=== PATIENT | female | born 1945 | race Caucasian/White ===

== ENCOUNTER 2017-12-18 16:04 | Emergency (ER) | payer OTHER, SELFPAY ==
[2017-12-18 16:11] VITALS: BP 155/70; PULSE 85; RESP 20; TEMP 37.2; O2SAT 98; BMI 30.7
[2017-12-18 16:17] VITALS: BP 155/70; PULSE 86; RESP 18; TEMP 36.8; O2SAT 100
--- NOTE | 2017-12-18 16:21 | DI.CT.S_ITS ---
PROCEDURE: CT HEAD/BRAIN WO CON INDICATIONS: glf TECHNIQUE: Noncontrast 4.5 mm thick angled axial sections acquired from the foramen magnum to the vertex, with coronal and sagittal reformats. For radiation dose reduction, the following was used: automated exposure control, adjustment of mA and/or kV according to patient size. COMPARISON: None. FINDINGS: Image quality: Excellent. CSF spaces: Basal cisterns are patent. No extra-axial fluid collections. The ventricles are symmetric in size and shape. Brain: Small acute parenchymal bleed measuring 9 mm in maximum diameter noted in the anterior right frontal lobe (series 2, image 18). No intracranial masses. There is moderate cerebral volume loss for age, with resultant ventricular and sulcal prominence. There are moderate periventricular and deep white matter chronic small vessel ischemic changes. There is intracranial internal carotid artery and vertebral artery atherosclerosis. Skull and face: Calvarium and visualized facial bones appear intact, without suspicious lesions. Large right frontal/right periorbital facial hematoma. Sinuses: Visualized sinuses and mastoids are clear. IMPRESSION: 1. Small, 9 mm in maximum diameter right frontal parenchymal hematoma. 2. No fracture. 3. Findings discussed with CHARISSA Aguirre on 12/18/2017 at 1705 hrs PST. Dictated by: Gladys Vargas MD, PhD on 12/18/2017 at 15:59 Approved by: Gladys Vargas MD, PhD on 12/18/2017 at 16:06
--- NOTE | 2017-12-18 16:21 | DI.CT.S_ITS ---
PROCEDURE: CT FACIAL BONES WO CON INDICATIONS: glf TECHNIQUE: Noncontrast 2.5 mm thick axial images acquired from the mandible through the frontal sinuses, with coronal and sagittal reformatting. For radiation dose reduction, the following was used: automated exposure control, adjustment of mA and/or kV according to patient size. COMPARISON: None. FINDINGS: Image quality: Excellent. Bones and teeth: Orbital wood are intact. Sinus wood show no fracture or deformity. Nasal bones and septum are intact. Visualized portions of the mandible demonstrate no fractures or subluxation. Zygomatic arches are intact. Pterygoid plates are intact. Visualized portions of the skull base and auditory canals are intact. Sinuses: Paranasal sinuses are aerated, without fluid levels, mucosal thickening, or mucoceles. Mastoid air cells are aerated. Soft tissues: Large right perirenal/right frontal facial hematoma is noted. No enlarged lymph nodes. No soft tissue lacerations or debris. Vascular: Atherosclerotic calcifications noted in the carotid arteries and vertebral arteries. Bony vascular foramina and canals are intact. IMPRESSION: No fracture. Dictated by: Gladys Vargas MD, PhD on 12/18/2017 at 16:06 Approved by: Gladys Vargas MD, PhD on 12/18/2017 at 16:09
--- NOTE | 2017-12-18 16:23 | DI.RAD.S_ITS ---
PROCEDURE: XR WRIST RT 2V INDICATIONS: right wrist pain after ground level fall TECHNIQUE: 2 views of the wrist were acquired. COMPARISON: None. FINDINGS: Bones: No fractures or dislocations. No suspicious bony lesions. Scaphoid view: Not requested Soft tissues: No suspicious soft tissue calcifications. IMPRESSION: No fracture. No acute osseous lesion. If symptoms and/or clinical suspicion for pathology persists, further assessment with repeat radiographs (7-10 days) or advanced imaging (e.g. CT, MRI or bone scan) may be helpful. Dictated by: Gladys Vargas MD, PhD on 12/18/2017 at 16:21 Approved by: Gladys Vargas MD, PhD on 12/18/2017 at 16:22
--- NOTE | 2017-12-18 16:23 | DI.RAD.S_ITS ---
PROCEDURE: XR KNEE RT 3V INDICATIONS: right knee pain after ground level fall TECHNIQUE: 3 views of the knee were acquired. COMPARISON: [facility], , KNEE 3V RIGHT, 04/11/2015, 14:31. FINDINGS: Bones: No fractures or dislocations. No suspicious bony lesions. Mild tricompartmental osteoarthritis. Soft tissues: No joint effusion. Small calcification noted in the prepatellar bursa. No IMPRESSION: No fracture. No acute osseous lesion. If symptoms and/or clinical suspicion for pathology persists, further assessment with repeat radiographs (7-10 days) or advanced imaging (e.g. CT, MRI or bone scan) may be helpful. Dictated by: Gladys Vargas MD, PhD on 12/18/2017 at 16:11 Approved by: Gladys Vargas MD, PhD on 12/18/2017 at 16:13
--- NOTE | 2017-12-18 16:23 | DI.RAD.S_ITS ---
PROCEDURE: XR KNEE LT 3V INDICATIONS: left knee pain after ground level fall TECHNIQUE: 3 views of the knee were acquired. COMPARISON: None. FINDINGS: Bones: No fractures or dislocations. No suspicious bony lesions. Mild tricompartmental osteoarthritis. Soft tissues: No joint effusion. No suspicious soft tissue calcifications. IMPRESSION: No fracture. No osseous lesion. If symptoms and/or clinical suspicion for pathology persists, further assessment with repeat radiographs (7-10 days) or advanced imaging (e.g. CT, MRI or bone scan) may be helpful. Dictated by: Gladys Vargas MD, PhD on 12/18/2017 at 16:13 Approved by: Gladys Vargas MD, PhD on 12/18/2017 at 16:21
[2017-12-18] MEDS: TET,DIPH,PERTUSS(ACELL),VAC/PF 0.5 ML SYRINGE IM (17:16)
--- NOTE | 2017-12-18 17:16 | ED.FALL ---
HPI - Fall <Mckenzie Torres RN CLINICAL QUALITY-BC - Last Filed: 12/18/17 18:34> General Chief Complaint: Fall Stated Complaint: GLF Time Seen by Provider: 12/18/17 16:14 Source: patient and family Mode of arrival: EMS History of Present Illness HPI Narrative: Patient is a 72-year-old female with history of diabetes In cardiac stents who presents after ground level fall. She states she tripped and fell over her son's dog. She presents complaining of a laceration and bruise above her right eye as well as bilateral knee pain and right wrist pain. She states she tripped forward and landed on her right outstretched hand. Then she hit her face. She denies any numbness, tingling, incontinence, dizziness lightheadedness nausea vomiting or diarrhea. She states she did not have any chest pain or shortness of breath. She does not know when her last tetanus vaccination was. She denies any pelvic pain. She states she was ambulating after the accident. Patient states she does not take any blood thinners and does not take Plavix. She came to us by EMS. She comes complaining of multiple abrasions on her face, hands and forearms. Related Data Home Medications Medication Instructions Recorded Confirmed aspirin 81 mg PO QDAY #0 01/20/12 12/18/17 furosemide [Lasix] 20 mg PO DAILY PRN #0 01/20/12 12/18/17 gabapentin [Neurontin] 300 mg PO BIDCC #0 01/20/12 12/18/17 nitroglycerin [Nitrolingual] 1 spray SUBLINGUAL PRN #0 01/20/12 12/18/17 cholestyramine-aspartame 1 packet PO BID PRN #0 04/27/17 12/18/17 [Prevalite] insulin aspart U-100 [Novolog 20 u SQ TIDAC #0 04/27/17 12/18/17 Flexpen U-100 Insulin] High Absorption Magnesium 2 tab PO BID 12/18/17 12/18/17 ascorbic acid-vitamin E-biotin 2 cap PO DAILY 12/18/17 12/18/17 [Hair, Skin, Nails with Biotin] atorvastatin 1 tab PO DAILY 12/18/17 12/18/17 cholecalciferol (vitamin D3) 5,000 unit PO DAILY 12/18/17 12/18/17 [Vitamin D3] citalopram 1 tab PO DAILY 12/18/17 12/18/17 esomeprazole magnesium 1 cap PO DAILY 12/18/17 12/18/17 fluticasone 2 spray INTRANASAL BID 12/18/17 12/18/17 hydrocodone-acetaminophen 1 tab PO 3-4XD PRN 12/18/17 12/18/17 insulin detemir U-100 [Levemir 70 units SUBCUT BEDTIME 12/18/17 12/18/17 FlexTouch U-100 Insuln] ipratropium bromide [Atrovent HFA] 2 puff INHALATION QID PRN 12/18/17 12/18/17 metformin 1 tab PO TID 12/18/17 12/18/17 metoprolol succinate 1 tab PO BID 12/18/17 12/18/17 nortriptyline 1 cap PO BID 12/18/17 12/18/17 vitamin B comp with C no.4 [Super 1 tab PO DAILY 12/18/17 12/18/17 B Complex + C] Allergies Allergy/AdvReac Type Severity Reaction Status Date / Time codeine [CODEINE] Allergy Mild SICK TO Unverified 05/29/17 12:23 STOMACH oxycodone [OXYCODONE] Allergy Mild INTRACTABLE Unverified 05/29/17 12:23 VOMITING phenobarbital [PHENOBARBITAL] Allergy Mild RASH Unverified 05/29/17 12:23 albuterol [ALBUTEROL] Allergy Unknown Unverified 05/29/17 12:23 IBUPROFEN Allergy Mild PT REPORTS Uncoded 05/29/17 12:23 SHE JUST DOESN'T TAKE. Review of Systems <CHARISSA Aguirre-BC - Last Filed: 12/18/17 18:34> Review of Systems GENERAL: Denies chills, fatigue, malaise, fever, sweats. HEENT: Denies sinus pain, ear pain, sore throat, difficulty swallowing, dizziness. RESPIRATORY: Denies dyspnea, cough, wheezing, hemoptysis, sputum. CARDIOVASCULAR: Denies chest pain, palpitations, orthopnea, edema, GASTROINTESTINAL: Denies nausea, vomiting, abdominal pain, diarrhea, constipation, melena. : Denies dysuria, frequency, incontinence, hematuria, urinary retention. MUSCULOSKELETAL: see HPI SKIN: See HPI NEUROLOGIC: see HPI PSYCHIATRIC: No concerning psychosocial issues. 12 point review of systems is negative except for those stated above Exam <CHARISSA Aguirre-BC - Last Filed: 12/18/17 18:34> Narrative Exam Narrative: GENERAL: This is a well-nourished, well-developed patient, with obvious facial trauma HEAD: laceration superior to right eye. Extensive periorbital ecchymosis noted right eye. Hematoma above the right eye EYES: periorbital ecchymosis extensive on right eye. Left pupil is round and reactive. No nystagmus noted left eye. ENT: Nose without bleeding, purulent drainage or septal hematoma. Throat without erythema, tonsillar hypertrophy or exudate. Uvula midline. Airway patent. NECK: Trachea midline. No JVD or lymphadenopathy. Supple, nontender, no meningeal signs. CARDIOVASCULAR: Regular rate and rhythm without murmurs, gallops, or rubs. RESPIRATORY: Clear to auscultation. Breath sounds equal bilaterally. No wheezes, rales, or rhonchi. GASTROINTESTINAL: Abdomen soft, Obese,non-tender, nondistended. No hepato-splenomegaly, or palpable masses. No guarding. EXTREMITIES: Patient complains of right wrist pain and decreased range of motion as far as flexion and extension. She complains of bilateral pain to palpation both patellas. She is moving all extremities. Pelvis is stable to rock. BACK: Nontender without deformity or crepitance. No flank tenderness. No pain to C-spine or spinal palpation. NEURO: AOx3. GCS 15. clear speech. SKIN: Multiple abrasions noted right hand left hand right wrist. 3-4 mm laceration superior to right eye. Initial Vital Signs Initial Vital Signs: Vital Signs Temperature 98.9 F 12/18/17 16:11 Pulse Rate 85 12/18/17 16:11 Respiratory Rate 20 12/18/17 16:11 Blood Pressure 155/70 H 12/18/17 16:11 Pulse Oximetry 98 12/18/17 16:11 <Raúl Bright MD - Last Filed: 12/18/17 19:17> Initial Vital Signs Initial Vital Signs: Vital Signs Temperature 98.9 F 12/18/17 16:11 Pulse Rate 85 12/18/17 16:11 Respiratory Rate 20 12/18/17 16:11 Blood Pressure 155/70 H 12/18/17 16:11 Pulse Oximetry 98 12/18/17 16:11 Course <Mckenzie Torres, RN CLINICAL QUALITY-BC - Last Filed: 12/18/17 18:34> Course Narrative: I met with the patient and her son and [id number] several times throughout her stay in the emergency department. I kept them updated on [facility] schedule. Patient remained hemodynamically stable throughout her emergency department stay. She remained alert and oriented using all extremities equally. Family remained at her bedside. Orders Ordered: ED Orders 12/18/17 16:21 CT facial bones wo con Stat CT head/brain wo con Stat 12/18/17 16:23 XR knee LT 3V Stat XR knee RT 3V Stat XR wrist RT 2V Stat 12/18/17 17:20 CT cervical spine wo con Stat Complete Blood Count AUTO DIFF Stat Comprehensive Metabolic Panel Stat Partial Thromboplastin Time Stat Prothrombin Time INR Stat Type and Screen Stat 12/18/17 17:22 EKG-12 Lead Stat Discontinued Medications Diphtheria/Tetanus/Acell Pertussis (Adacel) 0.5 ml IM .ONCE ONE Stop: 12/18/17 17:16 Last Admin: 12/18/17 17:16 Dose: 0.5 ml Morphine Sulfate (Morphine) 4 mg IV NOW ONE Stop: 12/18/17 18:17 Last Admin: 12/18/17 18:29 Dose: 4 mg Ondansetron HCl (Zofran) 4 mg IV NOW ONE Stop: 12/18/17 18:17 Last Admin: 12/18/17 18:29 Dose: 4 mg Reevaluation(s) Reevaluation #1: spoke with Radiology regarding frontal parenchymal hematoma. Time: 17:05 Reevaluation #2: Spoke with [facility]. Patient was accepted by Dr Briones at [facility]. Air lift transfer initiated. Time: 17:20 Reevaluation #3: Care transferred to [facility]. Patient was given morphine and Zofran prior to departure. She was also given a Watters catheter prior to departure. Upon transfer, patient complained of hip pain. However her blood pressures remained in the 150s, heart rate stable. Discussed that patient has been using legs without issue in the emergency department. Offered to the x-rays prior to air lift departure, but [facility] stated they would prefer to evaluated at [place] Given that she is hemodynamically stable. Time: 18:15 Vital Signs - 8 hr 12/18/17 16:11 12/18/17 16:17 12/18/17 17:30 Temperature 98.9 F 98.3 F Pulse Rate 85 86 93 H Respiratory Rate 20 18 22 Blood Pressure 155/70 H Blood Pressure [Left Arm] 155/70 H 162/71 H Pulse Oximetry 98 100 96 12/18/17 17:45 Temperature Pulse Rate 95 H Respiratory Rate 27 H Blood Pressure Blood Pressure [Left Arm] 155/65 H Pulse Oximetry 94 <Raúl Bright MD - Last Filed: 12/18/17 19:17> Orders Ordered: ED Orders 12/18/17 16:21 CT facial bones wo con Stat CT head/brain wo con Stat 12/18/17 16:23 XR knee LT 3V Stat XR knee RT 3V Stat XR wrist RT 2V Stat 12/18/17 17:20 CT cervical spine wo con Stat Complete Blood Count AUTO DIFF Stat Comprehensive Metabolic Panel Stat Partial Thromboplastin Time Stat Prothrombin Time INR Stat Type and Screen Stat 12/18/17 17:22 EKG-12 Lead Stat Discontinued Medications Diphtheria/Tetanus/Acell Pertussis (Adacel) 0.5 ml IM .ONCE ONE Stop: 12/18/17 17:16 Last Admin: 12/18/17 17:16 Dose: 0.5 ml Morphine Sulfate (Morphine) 4 mg IV NOW ONE Stop: 12/18/17 18:17 Last Admin: 12/18/17 18:29 Dose: 4 mg Ondansetron HCl (Zofran) 4 mg IV NOW ONE Stop: 12/18/17 18:17 Last Admin: 12/18/17 18:29 Dose: 4 mg Vital Signs - 8 hr 12/18/17 16:11 12/18/17 16:17 12/18/17 17:30 Temperature 98.9 F 98.3 F Pulse Rate 85 86 93 H Respiratory Rate 20 18 22 Blood Pressure 155/70 H Blood Pressure [Left Arm] 155/70 H 162/71 H Pulse Oximetry 98 100 96 12/18/17 17:45 Temperature Pulse Rate 95 H Respiratory Rate 27 H Blood Pressure Blood Pressure [Left Arm] 155/65 H Pulse Oximetry 94 MDM - Fall <KYRA Aguirre - Last Filed: 10/31/18 18:34> Lab Data Result diagrams: 12/18/17 17:20 12/18/17 17:20 Lab Results 12/18/17 12/18/17 12/18/17 Range/Units 17:20 17:20 17:20 WBC 12.8 H (4.5-11.0) X10^3/uL RBC 4.57 (4.0-5.2) X10^6/uL Hgb 12.3 (12.0-16.0) g/dL Hct 38.6 (36-46) % MCV 84.4 (80-100) fL MCH 26.9 (26-34) PG MCHC 31.9 (30-36) % RDW 15.3 H (11.6-14.8) % Plt Count 278 (150-400) X10^3/uL Neut % (Auto) 71.8 (50-75) % Lymph % (Auto) 19.5 L (25-40) % [place] % (Auto) 7.2 (3-14) % Eos % (Auto) 1.2 L (2-4) % Baso % (Auto) 0.3 (0-2) % Neut # (Auto) 9200 H (5307-8237) /uL PT 11.9 (10.1-12.7) SECONDS INR 1.1 (0.9-1.3) APTT 34 (26.4-36.2) SECONDS Sodium 142 (137-145) mmol/L Potassium 4.4 (3.4-5.1) mmol/L Chloride 101 (98-107) mmol/L Carbon Dioxide 26 (22-32) mmol/L BUN 15 (7-17) mg/dL Creatinine 0.80 (0.52-1.04) mg/dL Estimated GFR > 60.0 (>60) mL/min BUN/Creatinine Ratio 18.8 (6-22) Glucose 202 H (80-110) mg/dL Calcium 8.9 (8.4-10.2) mg/dL Total Bilirubin 0.3 (0.2-1.3) mg/dL AST 22 (14-36) IU/L ALT 24 (9-52) IU/L Alkaline Phosphatase 66 (38-126) U/L Total Protein 7.3 (6.3-8.2) g/dL Albumin 4.4 (3.5-5.0) g/dL Globulin 2.9 (1.7-4.1) g/dL Albumin/Globulin Ratio 1.5 (1.0-2.8) Blood Type Antibody Screen 12/18/17 Range/Units 17:20 WBC (4.5-11.0) X10^3/uL RBC (4.0-5.2) X10^6/uL Hgb (12.0-16.0) g/dL Hct (36-46) % MCV (80-100) fL MCH (26-34) PG MCHC (30-36) % RDW (11.6-14.8) % Plt Count (150-400) X10^3/uL Neut % (Auto) (50-75) % Lymph % (Auto) (25-40) % [place] % (Auto) (3-14) % Eos % (Auto) (2-4) % Baso % (Auto) (0-2) % Neut # (Auto) (4586-3207) /uL PT (10.1-12.7) SECONDS INR (0.9-1.3) APTT (26.4-36.2) SECONDS Sodium (137-145) mmol/L Potassium (3.4-5.1) mmol/L Chloride (98-107) mmol/L Carbon Dioxide (22-32) mmol/L BUN (7-17) mg/dL Creatinine (0.52-1.04) mg/dL Estimated GFR (>60) mL/min BUN/Creatinine Ratio (6-22) Glucose (80-110) mg/dL Calcium (8.4-10.2) mg/dL Total Bilirubin (0.2-1.3) mg/dL AST (14-36) IU/L ALT (9-52) IU/L Alkaline Phosphatase (38-126) U/L Total Protein (6.3-8.2) g/dL Albumin (3.5-5.0) g/dL Globulin (1.7-4.1) g/dL Albumin/Globulin Ratio (1.0-2.8) Blood Type A Positive Antibody Screen Negative Imaging Data right wrist farcture : Radiologist's impression: [address] [address] XRay Report Signed Patient: Twila Angel MMR#: [id number] : 5Acct:[id number] Age/Sex: 72 / FDate of Service: 12/18/17 Loc: ED Accession Number: [id number] Procedure: XR wrist RT 2V Ordering Provider: Mckenzie Torres PROCEDURE: XR WRIST RT 2V INDICATIONS: right wrist pain after ground level fall TECHNIQUE: 2 views of the wrist were acquired. COMPARISON: None. FINDINGS: Bones: No fractures or dislocations. No suspicious bony lesions. Scaphoid view: Not requested Soft tissues: No suspicious soft tissue calcifications. IMPRESSION: No fracture. No acute osseous lesion. If symptoms and/or clinical suspicion for pathology persists, further assessment with repeat radiographs (7-10 days) or advanced imaging (e.g. CT, MRI or bone scan) may be helpful. Dictated by: Gladys Vargas MD, PhD on 12/18/2017 at 16:21 Approved by: Gladys Vargas MD, PhD on 12/18/2017 at 16:22 left knee xray : Radiologist's impression: [place] [address] XRay Report Signed Patient: Twila Angel MMR#: [id number] : 5Acct:[id number] Age/Sex: 72 / FDate of Service: 12/18/17 Loc: ED Accession Number: [id number] Procedure: XR knee LT 3V Ordering Provider: Mckenzie Torres PROCEDURE: XR KNEE LT 3V INDICATIONS: left knee pain after ground level fall TECHNIQUE: 3 views of the knee were acquired. COMPARISON: None. FINDINGS: Bones: No fractures or dislocations. No suspicious bony lesions. Mild tricompartmental osteoarthritis. Soft tissues: No joint effusion. No suspicious soft tissue calcifications. IMPRESSION: No fracture. No osseous lesion. If symptoms and/or clinical suspicion for pathology persists, further assessment with repeat radiographs (7-10 days) or advanced imaging (e.g. CT, MRI or bone scan) may be helpful. Dictated by: Gladys Vargas MD, PhD on 12/18/2017 at 16:13 Approved by: Gladys Vargas MD, PhD on 12/18/2017 at 16:21 right knee xray: Radiologist's impression: [address] [address] XRay Report Signed Patient: Twila Angel [facility]#: [id number] : 5Acct:[id number] Age/Sex: 72 / FDate of Service: 12/18/17 Loc: ED Accession Number: [id number] Procedure: XR knee RT 3V Ordering Provider: Mckenzie Torres-SHERRY PROCEDURE: XR KNEE RT 3V INDICATIONS: right knee pain after ground level fall TECHNIQUE: 3 views of the knee were acquired. COMPARISON: [facility], KNEE 3V RIGHT, 04/11/2015, 14:31. FINDINGS: Bones: No fractures or dislocations. No suspicious bony lesions. Mild tricompartmental osteoarthritis. Soft tissues: No joint effusion. Small calcification noted in the prepatellar bursa. No IMPRESSION: No fracture. No acute osseous lesion. If symptoms and/or clinical suspicion for pathology persists, further assessment with repeat radiographs (7-10 days) or advanced imaging (e.g. CT, MRI or bone scan) may be helpful. Dictated by: Gladys Vargas MD, PhD on 12/18/2017 at 16:11 Approved by: Gladys Vargas MD, PhD on 12/18/2017 at 16:[address] : Radiologist's impression: [address] [address] XRay Report Signed Patient: Twila Angel [facility]#: [id number] : 5Acct:[id number] Age/Sex: 72 / FDate of Service: 12/18/17 Loc: ED Accession Number: [id number] Procedure: XR knee RT 3V Ordering Provider: Mckenzie Torres-SHERRY PROCEDURE: XR KNEE RT 3V INDICATIONS: right knee pain after ground level fall TECHNIQUE: 3 views of the knee were acquired. COMPARISON: [facility], KNEE 3V RIGHT, 04/11/2015, 14:31. FINDINGS: Bones: No fractures or dislocations. No suspicious bony lesions. Mild tricompartmental osteoarthritis. Soft tissues: No joint effusion. Small calcification noted in the prepatellar bursa. No IMPRESSION: No fracture. No acute osseous lesion. If symptoms and/or clinical suspicion for pathology persists, further assessment with repeat radiographs (7-10 days) or advanced imaging (e.g. CT, MRI or bone scan) may be helpful. Dictated by: Gladys Vargas MD, PhD on 12/18/2017 at 16:11 Approved by: Gladys Vargas MD, PhD on 12/18/2017 at 16:[address]: Radiologist's impression: [address] [address] [address] Scan Report Signed Patient: Twila Angel [facility]#: [id number] : 5Acct:[id number] Age/Sex: 72 / FDate of Service: 12/18/17 Loc: ED Accession Number: [id number] Procedure: CT facial bones wo con Ordering Provider: Mckenzie Torres PROCEDURE: CT FACIAL BONES WO CON INDICATIONS: glf TECHNIQUE: Noncontrast 2.5 mm thick axial images acquired from the mandible through the frontal sinuses, with coronal and sagittal reformatting. For radiation dose reduction, the following was used: automated exposure control, adjustment of mA and/or kV according to patient size. COMPARISON: None. FINDINGS: Image quality: Excellent. Bones and teeth: Orbital wood are intact. Sinus wood show no fracture or deformity. Nasal bones and septum are intact. Visualized portions of the mandible demonstrate no fractures or subluxation. Zygomatic arches are intact. Pterygoid plates are intact. Visualized portions of the skull base and auditory canals are intact. Sinuses: Paranasal sinuses are aerated, without fluid levels, mucosal thickening, or mucoceles. Mastoid air cells are aerated. Soft tissues: Large right perirenal/right frontal facial hematoma is noted. No enlarged lymph nodes. No soft tissue lacerations or debris. Vascular: Atherosclerotic calcifications noted in the carotid arteries and vertebral arteries. Bony vascular foramina and canals are intact. IMPRESSION: No fracture. Dictated by: Gladys Vargas MD, PhD on 12/18/2017 at 16:06 Approved by: Gladys Vargas MD, PhD on 12/18/2017 at 16:09 ECG Data Attestation: I personally reviewed and interpreted this ECG as follows: Interpretation: [address] [address] XRay Report Signed Sinus rhythm. Ventricular rate 91. No ST elevation or depression. No ectopy noted. MDM Narrative Medical decision making narrative: Patient is a 72-year-old female who presents after ground level fall. She was found to have a right frontal parenchymal hematoma. She also had various musculoskeletal complaints including knee pain and wrist pain which came back all negative. She does have a large hematoma and periorbital ecchymosis noted on her right side. Her tetanus was updated. Trauma labs were drawn and pending. Her C-spine CT is pending. All images have been pushed to [facility]. Dr Briones Was kind enough to accept the patient for transfer. [facility] picked up the patient at 4:00 p.m.. Patient remained hemodynamically stable and alert and oriented throughout her stay in the emergency department. <Raúl Bright MD - Last Filed: 12/18/17 19:17> Lab Data Lab Results 12/18/17 12/18/17 12/18/17 Range/Units 17:20 17:20 17:20 WBC 12.8 H (4.5-11.0) X10^3/uL RBC 4.57 (4.0-5.2) X10^6/uL Hgb 12.3 (12.0-16.0) g/dL Hct 38.6 (36-46) % MCV 84.4 (80-100) fL MCH 26.9 (26-34) PG MCHC 31.9 (30-36) % RDW 15.3 H (11.6-14.8) % Plt Count 278 (150-400) X10^3/uL Neut % (Auto) 71.8 (50-75) % Lymph % (Auto) 19.5 L (25-40) % [place] % (Auto) 7.2 (3-14) % Eos % (Auto) 1.2 L (2-4) % Baso % (Auto) 0.3 (0-2) % Neut # (Auto) 9200 H (9143-1943) /uL PT 11.9 (10.1-12.7) SECONDS INR 1.1 (0.9-1.3) APTT 34 (26.4-36.2) SECONDS Sodium 142 (137-145) mmol/L Potassium 4.4 (3.4-5.1) mmol/L Chloride 101 (98-107) mmol/L Carbon Dioxide 26 (22-32) mmol/L BUN 15 (7-17) mg/dL Creatinine 0.80 (0.52-1.04) mg/dL Estimated GFR > 60.0 (>60) mL/min BUN/Creatinine Ratio 18.8 (6-22) Glucose 202 H (80-110) mg/dL Calcium 8.9 (8.4-10.2) mg/dL Total Bilirubin 0.3 (0.2-1.3) mg/dL AST 22 (14-36) IU/L ALT 24 (9-52) IU/L Alkaline Phosphatase 66 (38-126) U/L Total Protein 7.3 (6.3-8.2) g/dL Albumin 4.4 (3.5-5.0) g/dL Globulin 2.9 (1.7-4.1) g/dL Albumin/Globulin Ratio 1.5 (1.0-2.8) Blood Type Antibody Screen 12/18/17 Range/Units 17:20 WBC (4.5-11.0) X10^3/uL RBC (4.0-5.2) X10^6/uL Hgb (12.0-16.0) g/dL Hct (36-46) % MCV (80-100) fL MCH (26-34) PG MCHC (30-36) % RDW (11.6-14.8) % Plt Count (150-400) X10^3/uL Neut % (Auto) (50-75) % Lymph % (Auto) (25-40) % [place] % (Auto) (3-14) % Eos % (Auto) (2-4) % Baso % (Auto) (0-2) % Neut # (Auto) (8712-5697) /uL PT (10.1-12.7) SECONDS INR (0.9-1.3) APTT (26.4-36.2) SECONDS Sodium (137-145) mmol/L Potassium (3.4-5.1) mmol/L Chloride (98-107) mmol/L Carbon Dioxide (22-32) mmol/L BUN (7-17) mg/dL Creatinine (0.52-1.04) mg/dL Estimated GFR (>60) mL/min BUN/Creatinine Ratio (6-22) Glucose (80-110) mg/dL Calcium (8.4-10.2) mg/dL Total Bilirubin (0.2-1.3) mg/dL AST (14-36) IU/L ALT (9-52) IU/L Alkaline Phosphatase (38-126) U/L Total Protein (6.3-8.2) g/dL Albumin (3.5-5.0) g/dL Globulin (1.7-4.1) g/dL Albumin/Globulin Ratio (1.0-2.8) Blood Type A Positive Antibody Screen Negative Discharge Plan Departure Patient Disposition: [facility] Clinical Impression: Parenchymal hemorrhage, Fall from ground level, Hematoma, Laceration Discharge Date/Time: 12/18/17 18:35 Interventions: ED Discharge Assessment Last Done: 12/18/17 18:58 Prescriptions: No Action aspirin 81 MG tablet,delayed release (DR/EC) 81 mg PO QDAY Qty: 0 RF: 0 nitroglycerin [Nitrolingual] 0.4 MG/SPRAY spray,non-aerosol 1 spray Sublingual PRN Qty: 0 RF: 0 furosemide [Lasix] 20 MG tablet 20 mg PO DAILY PRN (Reason: Edema) Qty: 0 RF: 0 gabapentin [Neurontin] 300 MG capsule 300 mg PO BIDCC Qty: 0 RF: 0 insulin aspart U-100 [Novolog Flexpen U-100 Insulin] 100 UNIT/1 ML insulin pen 20 u SQ TIDAC Qty: 0 RF: 0 cholestyramine-aspartame [Prevalite] 4 GM powder in packet 1 packet PO BID PRN (Reason: as directed) Qty: 0 RF: 0 metformin 500 mg tablet 1 tab PO TID RF: 0 atorvastatin 20 mg tablet 1 tab PO DAILY RF: 0 metoprolol succinate 50 mg tablet extended release 24 hr 1 tab PO BID RF: 0 hydrocodone-acetaminophen 10-325 mg tablet 1 tab PO 3-4XD PRN (Reason: pain) RF: 0 nortriptyline 25 mg capsule 1 cap PO BID RF: 0 citalopram 20 mg tablet 1 tab PO DAILY RF: 0 esomeprazole magnesium 40 mg capsule,delayed release(DR/EC) 1 cap PO DAILY RF: 0 fluticasone 50 mcg/actuation spray,suspension 2 spray Intranasal BID RF: 0 ipratropium bromide [Atrovent HFA] 17 mcg/actuation HFA aerosol inhaler 2 puff Inhalation QID PRN (Reason: Wheezing) RF: 0 insulin detemir U-100 [Levemir FlexTouch U-100 Insuln] 100 unit/mL (3 mL) insulin pen 70 units subcut BEDTIME RF: 0 vitamin B comp with C no.4 [Super B Complex + C] 150 mg Tablet 1 tab PO DAILY RF: 0 cholecalciferol (vitamin D3) [Vitamin D3] 5,000 unit Tablet 5,000 unit PO DAILY RF: 0 ascorbic acid-vitamin E-biotin [Hair, Skin, Nails with Biotin] 7.5-7.5-1,250 mg-unit-mcg Tablet,Chewable 2 cap PO DAILY RF: 0 High Absorption Magnesium 2 tab PO BID RF: 0 <Raúl Bright MD - Last Filed: 12/18/17 19:17> Cosign ED Attending Cosignature Attestation: Exam Narrative: GENERAL APPEARANCE: Patient sitting comfortably, in no distress. HEENT: PERRL, EOMI, conjunctiva pink NECK: Supple I was present in the ER at the time this patient's care. I was available for verbal consultation or to see the patient directly if requested. I agree with the assessment and treatment plan.
--- NOTE | 2017-12-18 17:19 | ED_ITS ---
HPI - Fall <Mckenzie Torres ENGINE MANAGER-BC - Last Filed: 12/18/17 18:34> General Chief Complaint: Fall Stated Complaint: GLF Time Seen by Provider: 12/18/17 16:14 Source: patient and family Mode of arrival: EMS History of Present Illness HPI Narrative: Patient is a 72-year-old female with history of diabetes In cardiac stents who presents after ground level fall. She states she tripped and fell over her son's dog. She presents complaining of a laceration and bruise above her right eye as well as bilateral knee pain and right wrist pain. She states she tripped forward and landed on her right outstretched hand. Then she hit her face. She denies any numbness, tingling, incontinence, dizziness lightheadedness nausea vomiting or diarrhea. She states she did not have any chest pain or shortness of breath. She does not know when her last tetanus vaccination was. She denies any pelvic pain. She states she was ambulating after the accident. Patient states she does not take any blood thinners and does not take Plavix. She came to us by EMS. She comes complaining of multiple abrasions on her face, hands and forearms. Related Data Home Medications Medication Instructions Recorded Confirmed aspirin 81 mg PO QDAY #0 01/20/12 12/18/17 furosemide [Lasix] 20 mg PO DAILY PRN #0 01/20/12 12/18/17 gabapentin [Neurontin] 300 mg PO BIDCC #0 01/20/12 12/18/17 nitroglycerin [Nitrolingual] 1 spray SUBLINGUAL PRN #0 01/20/12 12/18/17 cholestyramine-aspartame 1 packet PO BID PRN #0 04/27/17 12/18/17 [Prevalite] insulin aspart U-100 [Novolog 20 u SQ TIDAC #0 04/27/17 12/18/17 Flexpen U-100 Insulin] High Absorption Magnesium 2 tab PO BID 12/18/17 12/18/17 ascorbic acid-vitamin E-biotin 2 cap PO DAILY 12/18/17 12/18/17 [Hair, Skin, Nails with Biotin] atorvastatin 1 tab PO DAILY 12/18/17 12/18/17 cholecalciferol (vitamin D3) 5,000 unit PO DAILY 12/18/17 12/18/17 [Vitamin D3] citalopram 1 tab PO DAILY 12/18/17 12/18/17 esomeprazole magnesium 1 cap PO DAILY 12/18/17 12/18/17 fluticasone 2 spray INTRANASAL BID 12/18/17 12/18/17 hydrocodone-acetaminophen 1 tab PO 3-4XD PRN 12/18/17 12/18/17 insulin detemir U-100 [Levemir 70 units SUBCUT BEDTIME 12/18/17 12/18/17 FlexTouch U-100 Insuln] ipratropium bromide [Atrovent HFA] 2 puff INHALATION QID PRN 12/18/17 12/18/17 metformin 1 tab PO TID 12/18/17 12/18/17 metoprolol succinate 1 tab PO BID 12/18/17 12/18/17 nortriptyline 1 cap PO BID 12/18/17 12/18/17 vitamin B comp with C no.4 [Super 1 tab PO DAILY 12/18/17 12/18/17 B Complex + C] Allergies Allergy/AdvReac Type Severity Reaction Status Date / Time codeine [CODEINE] Allergy Mild SICK TO Unverified 05/29/17 12:23 STOMACH oxycodone [OXYCODONE] Allergy Mild INTRACTABLE Unverified 05/29/17 12:23 VOMITING phenobarbital [PHENOBARBITAL] Allergy Mild RASH Unverified 05/29/17 12:23 albuterol [ALBUTEROL] Allergy Unknown Unverified 05/29/17 12:23 IBUPROFEN Allergy Mild PT REPORTS Uncoded 05/29/17 12:23 SHE JUST DOESN'T TAKE. Review of Systems <CHARISSA Aguirre-BC - Last Filed: 12/18/17 18:34> Review of Systems GENERAL: Denies chills, fatigue, malaise, fever, sweats. HEENT: Denies sinus pain, ear pain, sore throat, difficulty swallowing, dizziness. RESPIRATORY: Denies dyspnea, cough, wheezing, hemoptysis, sputum. CARDIOVASCULAR: Denies chest pain, palpitations, orthopnea, edema, GASTROINTESTINAL: Denies nausea, vomiting, abdominal pain, diarrhea, constipation, melena. : Denies dysuria, frequency, incontinence, hematuria, urinary retention. MUSCULOSKELETAL: see HPI SKIN: See HPI NEUROLOGIC: see HPI PSYCHIATRIC: No concerning psychosocial issues. 12 point review of systems is negative except for those stated above Exam <CHARISSA Aguirre-BC - Last Filed: 12/18/17 18:34> Narrative Exam Narrative: GENERAL: This is a well-nourished, well-developed patient, with obvious facial trauma HEAD: laceration superior to right eye. Extensive periorbital ecchymosis noted right eye. Hematoma above the right eye EYES: periorbital ecchymosis extensive on right eye. Left pupil is round and reactive. No nystagmus noted left eye. ENT: Nose without bleeding, purulent drainage or septal hematoma. Throat without erythema, tonsillar hypertrophy or exudate. Uvula midline. Airway patent. NECK: Trachea midline. No JVD or lymphadenopathy. Supple, nontender, no meningeal signs. CARDIOVASCULAR: Regular rate and rhythm without murmurs, gallops, or rubs. RESPIRATORY: Clear to auscultation. Breath sounds equal bilaterally. No wheezes , rales, or rhonchi. GASTROINTESTINAL: Abdomen soft, Obese,non-tender, nondistended. No hepato- splenomegaly, or palpable masses. No guarding. EXTREMITIES: Patient complains of right wrist pain and decreased range of motion as far as flexion and extension. She complains of bilateral pain to palpation both patellas. She is moving all extremities. Pelvis is stable to rock. BACK: Nontender without deformity or crepitance. No flank tenderness. No pain to C-spine or spinal palpation. NEURO: AOx3. GCS 15. clear speech. SKIN: Multiple abrasions noted right hand left hand right wrist. 3-4 mm laceration superior to right eye. Initial Vital Signs Initial Vital Signs: Vital Signs Temperature 98.9 F 12/18/17 16:11 Pulse Rate 85 12/18/17 16:11 Respiratory Rate 20 12/18/17 16:11 Blood Pressure 155/70 H 12/18/17 16:11 Pulse Oximetry 98 12/18/17 16:11 <Raúl Bright MD - Last Filed: 12/18/17 19:17> Initial Vital Signs Initial Vital Signs: Vital Signs Temperature 98.9 F 12/18/17 16:11 Pulse Rate 85 12/18/17 16:11 Respiratory Rate 20 12/18/17 16:11 Blood Pressure 155/70 H 12/18/17 16:11 Pulse Oximetry 98 12/18/17 16:11 Course <Mckenzie Torres, ENGINE MANAGER-BC - Last Filed: 12/18/17 18:34> Course Narrative: I met with the patient and her son and [id number] several times throughout her stay in the emergency department. I kept them updated on [facility] schedule. Patient remained hemodynamically stable throughout her emergency department stay. She remained alert and oriented using all extremities equally. Family remained at her bedside. Orders Ordered: ED Orders 12/18/17 16:21 CT facial bones wo con Stat CT head/brain wo con Stat 12/18/17 16:23 XR knee LT 3V Stat XR knee RT 3V Stat XR wrist RT 2V Stat 12/18/17 17:20 CT cervical spine wo con Stat Complete Blood Count AUTO DIFF Stat Comprehensive Metabolic Panel Stat Partial Thromboplastin Time Stat Prothrombin Time INR Stat Type and Screen Stat 12/18/17 17:22 EKG-12 Lead Stat Discontinued Medications Diphtheria/Tetanus/Acell Pertussis (Adacel) 0.5 ml IM .ONCE ONE Stop: 12/18/17 17:16 Last Admin: 12/18/17 17:16 Dose: 0.5 ml Morphine Sulfate (Morphine) 4 mg IV NOW ONE Stop: 12/18/17 18:17 Last Admin: 12/18/17 18:29 Dose: 4 mg Ondansetron HCl (Zofran) 4 mg IV NOW ONE Stop: 12/18/17 18:17 Last Admin: 12/18/17 18:29 Dose: 4 mg Reevaluation(s) Reevaluation #1: spoke with Radiology regarding frontal parenchymal hematoma. Time: 17:05 Reevaluation #2: Spoke with [facility]. Patient was accepted by Dr Briones at [facility]. Air lift transfer initiated. Time: 17:20 Reevaluation #3: Care transferred to [facility]. Patient was given morphine and Zofran prior to departure. She was also given a Watters catheter prior to departure. Upon transfer, patient complained of hip pain. However her blood pressures remained in the 150s, heart rate stable. Discussed that patient has been using legs without issue in the emergency department. Offered to the x-rays prior to air lift departure, but [facility] stated they would prefer to evaluated at [place] Given that she is hemodynamically stable. Time: 18:15 Vital Signs - 8 hr 12/18/17 16:11 12/18/17 16:17 12/18/17 17:30 Temperature 98.9 F 98.3 F Pulse Rate 85 86 93 H Respiratory Rate 20 18 22 Blood Pressure 155/70 H Blood Pressure [Left Arm] 155/70 H 162/71 H Pulse Oximetry 98 100 96 12/18/17 17:45 Temperature Pulse Rate 95 H Respiratory Rate 27 H Blood Pressure Blood Pressure [Left Arm] 155/65 H Pulse Oximetry 94 <Raúl Bright MD - Last Filed: 12/18/17 19:17> Orders Ordered: ED Orders 12/18/17 16:21 CT facial bones wo con Stat CT head/brain wo con Stat 12/18/17 16:23 XR knee LT 3V Stat XR knee RT 3V Stat XR wrist RT 2V Stat 12/18/17 17:20 CT cervical spine wo con Stat Complete Blood Count AUTO DIFF Stat Comprehensive Metabolic Panel Stat Partial Thromboplastin Time Stat Prothrombin Time INR Stat Type and Screen Stat 12/18/17 17:22 EKG-12 Lead Stat Discontinued Medications Diphtheria/Tetanus/Acell Pertussis (Adacel) 0.5 ml IM .ONCE ONE Stop: 12/18/17 17:16 Last Admin: 12/18/17 17:16 Dose: 0.5 ml Morphine Sulfate (Morphine) 4 mg IV NOW ONE Stop: 12/18/17 18:17 Last Admin: 12/18/17 18:29 Dose: 4 mg Ondansetron HCl (Zofran) 4 mg IV NOW ONE Stop: 12/18/17 18:17 Last Admin: 12/18/17 18:29 Dose: 4 mg Vital Signs - 8 hr 12/18/17 16:11 12/18/17 16:17 12/18/17 17:30 Temperature 98.9 F 98.3 F Pulse Rate 85 86 93 H Respiratory Rate 20 18 22 Blood Pressure 155/70 H Blood Pressure [Left Arm] 155/70 H 162/71 H Pulse Oximetry 98 100 96 12/18/17 17:45 Temperature Pulse Rate 95 H Respiratory Rate 27 H Blood Pressure Blood Pressure [Left Arm] 155/65 H Pulse Oximetry 94 MDM - Fall <KYRA Aguirre - Last Filed: 10/31/18 18:34> Lab Data Result diagrams: 12/18/17 17:20 12/18/17 17:20 Lab Results 12/18/17 12/18/17 12/18/17 Range/Units 17:20 17:20 17:20 WBC 12.8 H (4.5-11.0) X10^3/uL RBC 4.57 (4.0-5.2) X10^6/uL Hgb 12.3 (12.0-16.0) g/dL Hct 38.6 (36-46) % MCV 84.4 (80-100) fL MCH 26.9 (26-34) PG MCHC 31.9 (30-36) % RDW 15.3 H (11.6-14.8) % Plt Count 278 (150-400) X10^3/uL Neut % (Auto) 71.8 (50-75) % Lymph % (Auto) 19.5 L (25-40) % Benton % (Auto) 7.2 (3-14) % Eos % (Auto) 1.2 L (2-4) % Baso % (Auto) 0.3 (0-2) % Neut # (Auto) 9200 H (1560-1415) /uL PT 11.9 (10.1-12.7) SECONDS INR 1.1 (0.9-1.3) APTT 34 (26.4-36.2) SECONDS Sodium 142 (137-145) mmol/L Potassium 4.4 (3.4-5.1) mmol/L Chloride 101 (98-107) mmol/L Carbon Dioxide 26 (22-32) mmol/L BUN 15 (7-17) mg/dL Creatinine 0.80 (0.52-1.04) mg/dL Estimated GFR > 60.0 (>60) mL/min BUN/Creatinine Ratio 18.8 (6-22) Glucose 202 H (80-110) mg/dL Calcium 8.9 (8.4-10.2) mg/dL Total Bilirubin 0.3 (0.2-1.3) mg/dL AST 22 (14-36) IU/L ALT 24 (9-52) IU/L Alkaline Phosphatase 66 (38-126) U/L Total Protein 7.3 (6.3-8.2) g/dL Albumin 4.4 (3.5-5.0) g/dL Globulin 2.9 (1.7-4.1) g/dL Albumin/Globulin Ratio 1.5 (1.0-2.8) Blood Type Antibody Screen 12/18/17 Range/Units 17:20 WBC (4.5-11.0) X10^3/uL RBC (4.0-5.2) X10^6/uL Hgb (12.0-16.0) g/dL Hct (36-46) % MCV (80-100) fL MCH (26-34) PG MCHC (30-36) % RDW (11.6-14.8) % Plt Count (150-400) X10^3/uL Neut % (Auto) (50-75) % Lymph % (Auto) (25-40) % Benton % (Auto) (3-14) % Eos % (Auto) (2-4) % Baso % (Auto) (0-2) % Neut # (Auto) (2864-2023) /uL PT (10.1-12.7) SECONDS INR (0.9-1.3) APTT (26.4-36.2) SECONDS Sodium (137-145) mmol/L Potassium (3.4-5.1) mmol/L Chloride (98-107) mmol/L Carbon Dioxide (22-32) mmol/L BUN (7-17) mg/dL Creatinine (0.52-1.04) mg/dL Estimated GFR (>60) mL/min BUN/Creatinine Ratio (6-22) Glucose (80-110) mg/dL Calcium (8.4-10.2) mg/dL Total Bilirubin (0.2-1.3) mg/dL AST (14-36) IU/L ALT (9-52) IU/L Alkaline Phosphatase (38-126) U/L Total Protein (6.3-8.2) g/dL Albumin (3.5-5.0) g/dL Globulin (1.7-4.1) g/dL Albumin/Globulin Ratio (1.0-2.8) Blood Type A Positive Antibody Screen Negative Imaging Data right wrist farcture : Radiologist's impression: [address] [address] XRay Report Signed Patient: Twila Angel MMR#: [id number] : 5Acct:[id number] Age/Sex: 72 / FDate of Service: 12/18/17 Loc: ED Accession Number: [id number] Procedure: XR wrist RT 2V Ordering Provider: Mckenzie Torres PROCEDURE: XR WRIST RT 2V INDICATIONS: right wrist pain after ground level fall TECHNIQUE: 2 views of the wrist were acquired. COMPARISON: None. FINDINGS: Bones: No fractures or dislocations. No suspicious bony lesions. Scaphoid view: Not requested Soft tissues: No suspicious soft tissue calcifications. IMPRESSION: No fracture. No acute osseous lesion. If symptoms and/or clinical suspicion for pathology persists, further assessment with repeat radiographs (7-10 days) or advanced imaging (e.g. CT, MRI or bone scan) may be helpful. Dictated by: Gladys Vargas MD, PhD on 12/18/2017 at 16:21 Approved by: Gladys Vargas MD, PhD on 12/18/2017 at 16:22 left knee xray : Radiologist's impression: [place] [address] XRay Report Signed Patient: Twila Angel MMR#: [id number] : 5Acct:[id number] Age/Sex: 72 / FDate of Service: 12/18/17 Loc: ED Accession Number: [id number] Procedure: XR knee LT 3V Ordering Provider: Mckenzie Torres PROCEDURE: XR KNEE LT 3V INDICATIONS: left knee pain after ground level fall TECHNIQUE: 3 views of the knee were acquired. COMPARISON: None. FINDINGS: Bones: No fractures or dislocations. No suspicious bony lesions. Mild tricompartmental osteoarthritis. Soft tissues: No joint effusion. No suspicious soft tissue calcifications. IMPRESSION: No fracture. No osseous lesion. If symptoms and/or clinical suspicion for pathology persists, further assessment with repeat radiographs (7-10 days) or advanced imaging (e.g. CT, MRI or bone scan) may be helpful. Dictated by: Gladys Vargas MD, PhD on 12/18/2017 at 16:13 Approved by: Gladys Vargas MD, PhD on 12/18/2017 at 16:21 right knee xray: Radiologist's impression: [address] [address] XRay Report Signed Patient: Twila Angel [facility]#: [id number] : 5Acct:[id number] Age/Sex: 72 / FDate of Service: 12/18/17 Loc: ED Accession Number: [id number] Procedure: XR knee RT 3V Ordering Provider: Mckenzie Torres-SHERRY PROCEDURE: XR KNEE RT 3V INDICATIONS: right knee pain after ground level fall TECHNIQUE: 3 views of the knee were acquired. COMPARISON: [facility], KNEE 3V RIGHT, 04/11/2015, 14:31. FINDINGS: Bones: No fractures or dislocations. No suspicious bony lesions. Mild tricompartmental osteoarthritis. Soft tissues: No joint effusion. Small calcification noted in the prepatellar bursa. No IMPRESSION: No fracture. No acute osseous lesion. If symptoms and/or clinical suspicion for pathology persists, further assessment with repeat radiographs (7-10 days) or advanced imaging (e.g. CT, MRI or bone scan) may be helpful. Dictated by: Gladys Vargas MD, PhD on 12/18/2017 at 16:11 Approved by: Gladys Vargas MD, PhD on 12/18/2017 at 16:[address] : Radiologist's impression: [address] [address] XRay Report Signed Patient: Twila Angel [facility]#: [id number] : 5Acct:[id number] Age/Sex: 72 / FDate of Service: 12/18/17 Loc: ED Accession Number: [id number] Procedure: XR knee RT 3V Ordering Provider: Mckenzie Torres-SHERRY PROCEDURE: XR KNEE RT 3V INDICATIONS: right knee pain after ground level fall TECHNIQUE: 3 views of the knee were acquired. COMPARISON: [facility], KNEE 3V RIGHT, 04/11/2015, 14:31. FINDINGS: Bones: No fractures or dislocations. No suspicious bony lesions. Mild tricompartmental osteoarthritis. Soft tissues: No joint effusion. Small calcification noted in the prepatellar bursa. No IMPRESSION: No fracture. No acute osseous lesion. If symptoms and/or clinical suspicion for pathology persists, further assessment with repeat radiographs (7-10 days) or advanced imaging (e.g. CT, MRI or bone scan) may be helpful. Dictated by: Gladys Vargas MD, PhD on 12/18/2017 at 16:11 Approved by: Gladys Vargas MD, PhD on 12/18/2017 at 16:[address]: Radiologist's impression: [address] [address] [address] Scan Report Signed Patient: Twila Angel [facility]#: [id number] : 5Acct:[id number] Age/Sex: 72 / FDate of Service: 12/18/17 Loc: ED Accession Number: [id number] Procedure: CT facial bones wo con Ordering Provider: Mckenzie Torres PROCEDURE: CT FACIAL BONES WO CON INDICATIONS: glf TECHNIQUE: Noncontrast 2.5 mm thick axial images acquired from the mandible through the frontal sinuses, with coronal and sagittal reformatting. For radiation dose reduction, the following was used: automated exposure control, adjustment of mA and/or kV according to patient size. COMPARISON: None. FINDINGS: Image quality: Excellent. Bones and teeth: Orbital wood are intact. Sinus wood show no fracture or deformity. Nasal bones and septum are intact. Visualized portions of the mandible demonstrate no fractures or subluxation. Zygomatic arches are intact. Pterygoid plates are intact. Visualized portions of the skull base and auditory canals are intact. Sinuses: Paranasal sinuses are aerated, without fluid levels, mucosal thickening, or mucoceles. Mastoid air cells are aerated. Soft tissues: Large right perirenal/right frontal facial hematoma is noted. No enlarged lymph nodes. No soft tissue lacerations or debris. Vascular: Atherosclerotic calcifications noted in the carotid arteries and vertebral arteries. Bony vascular foramina and canals are intact. IMPRESSION: No fracture. Dictated by: Gladys Vargas MD, PhD on 12/18/2017 at 16:06 Approved by: Gladys Vargas MD, PhD on 12/18/2017 at 16:09 ECG Data Attestation: I personally reviewed and interpreted this ECG as follows: Interpretation: [address] [address] XRay Report Signed Sinus rhythm. Ventricular rate 91. No ST elevation or depression. No ectopy noted. MDM Narrative Medical decision making narrative: Patient is a 72-year-old female who presents after ground level fall. She was found to have a right frontal parenchymal hematoma. She also had various musculoskeletal complaints including knee pain and wrist pain which came back all negative. She does have a large hematoma and periorbital ecchymosis noted on her right side. Her tetanus was updated. Trauma labs were drawn and pending. Her C-spine CT is pending. All images have been pushed to [facility]. Dr Briones Was kind enough to accept the patient for transfer. [facility] picked up the patient at 4:00 p.m.. Patient remained hemodynamically stable and alert and oriented throughout her stay in the emergency department. <Raúl Bright MD - Last Filed: 12/18/17 19:17> Lab Data Lab Results 12/18/17 12/18/17 12/18/17 Range/Units 17:20 17:20 17:20 WBC 12.8 H (4.5-11.0) X10^3/uL RBC 4.57 (4.0-5.2) X10^6/uL Hgb 12.3 (12.0-16.0) g/dL Hct 38.6 (36-46) % MCV 84.4 (80-100) fL MCH 26.9 (26-34) PG MCHC 31.9 (30-36) % RDW 15.3 H (11.6-14.8) % Plt Count 278 (150-400) X10^3/uL Neut % (Auto) 71.8 (50-75) % Lymph % (Auto) 19.5 L (25-40) % Benton % (Auto) 7.2 (3-14) % Eos % (Auto) 1.2 L (2-4) % Baso % (Auto) 0.3 (0-2) % Neut # (Auto) 9200 H (2192-7576) /uL PT 11.9 (10.1-12.7) SECONDS INR 1.1 (0.9-1.3) APTT 34 (26.4-36.2) SECONDS Sodium 142 (137-145) mmol/L Potassium 4.4 (3.4-5.1) mmol/L Chloride 101 (98-107) mmol/L Carbon Dioxide 26 (22-32) mmol/L BUN 15 (7-17) mg/dL Creatinine 0.80 (0.52-1.04) mg/dL Estimated GFR > 60.0 (>60) mL/min BUN/Creatinine Ratio 18.8 (6-22) Glucose 202 H (80-110) mg/dL Calcium 8.9 (8.4-10.2) mg/dL Total Bilirubin 0.3 (0.2-1.3) mg/dL AST 22 (14-36) IU/L ALT 24 (9-52) IU/L Alkaline Phosphatase 66 (38-126) U/L Total Protein 7.3 (6.3-8.2) g/dL Albumin 4.4 (3.5-5.0) g/dL Globulin 2.9 (1.7-4.1) g/dL Albumin/Globulin Ratio 1.5 (1.0-2.8) Blood Type Antibody Screen 12/18/17 Range/Units 17:20 WBC (4.5-11.0) X10^3/uL RBC (4.0-5.2) X10^6/uL Hgb (12.0-16.0) g/dL Hct (36-46) % MCV (80-100) fL MCH (26-34) PG MCHC (30-36) % RDW (11.6-14.8) % Plt Count (150-400) X10^3/uL Neut % (Auto) (50-75) % Lymph % (Auto) (25-40) % Benton % (Auto) (3-14) % Eos % (Auto) (2-4) % Baso % (Auto) (0-2) % Neut # (Auto) (4170-1442) /uL PT (10.1-12.7) SECONDS INR (0.9-1.3) APTT (26.4-36.2) SECONDS Sodium (137-145) mmol/L Potassium (3.4-5.1) mmol/L Chloride (98-107) mmol/L Carbon Dioxide (22-32) mmol/L BUN (7-17) mg/dL Creatinine (0.52-1.04) mg/dL Estimated GFR (>60) mL/min BUN/Creatinine Ratio (6-22) Glucose (80-110) mg/dL Calcium (8.4-10.2) mg/dL Total Bilirubin (0.2-1.3) mg/dL AST (14-36) IU/L ALT (9-52) IU/L Alkaline Phosphatase (38-126) U/L Total Protein (6.3-8.2) g/dL Albumin (3.5-5.0) g/dL Globulin (1.7-4.1) g/dL Albumin/Globulin Ratio (1.0-2.8) Blood Type A Positive Antibody Screen Negative Discharge Plan Departure Patient Disposition: [facility] Clinical Impression: Parenchymal hemorrhage, Fall from ground level, Hematoma, Laceration Discharge Date/Time: 12/18/17 18:35 Interventions: ED Discharge Assessment Last Done: 12/18/17 18:58 Prescriptions: No Action aspirin 81 MG tablet,delayed release (DR/EC) 81 mg PO QDAY Qty: 0 RF: 0 nitroglycerin [Nitrolingual] 0.4 MG/SPRAY spray,non-aerosol 1 spray Sublingual PRN Qty: 0 RF: 0 furosemide [Lasix] 20 MG tablet 20 mg PO DAILY PRN (Reason: Edema) Qty: 0 RF: 0 gabapentin [Neurontin] 300 MG capsule 300 mg PO BIDCC Qty: 0 RF: 0 insulin aspart U-100 [Novolog Flexpen U-100 Insulin] 100 UNIT/1 ML insulin pen 20 u SQ TIDAC Qty: 0 RF: 0 cholestyramine-aspartame [Prevalite] 4 GM powder in packet 1 packet PO BID PRN (Reason: as directed) Qty: 0 RF: 0 metformin 500 mg tablet 1 tab PO TID RF: 0 atorvastatin 20 mg tablet 1 tab PO DAILY RF: 0 metoprolol succinate 50 mg tablet extended release 24 hr 1 tab PO BID RF: 0 hydrocodone-acetaminophen 10-325 mg tablet 1 tab PO 3-4XD PRN (Reason: pain) RF: 0 nortriptyline 25 mg capsule 1 cap PO BID RF: 0 citalopram 20 mg tablet 1 tab PO DAILY RF: 0 esomeprazole magnesium 40 mg capsule,delayed release(DR/EC) 1 cap PO DAILY RF: 0 fluticasone 50 mcg/actuation spray,suspension 2 spray Intranasal BID RF: 0 ipratropium bromide [Atrovent HFA] 17 mcg/actuation HFA aerosol inhaler 2 puff Inhalation QID PRN (Reason: Wheezing) RF: 0 insulin detemir U-100 [Levemir FlexTouch U-100 Insuln] 100 unit/mL (3 mL) insulin pen 70 units subcut BEDTIME RF: 0 vitamin B comp with C no.4 [Super B Complex + C] 150 mg Tablet 1 tab PO DAILY RF: 0 cholecalciferol (vitamin D3) [Vitamin D3] 5,000 unit Tablet 5,000 unit PO DAILY RF: 0 ascorbic acid-vitamin E-biotin [Hair, Skin, Nails with Biotin] 7.5-7.5-1,250 mg-unit-mcg Tablet,Chewable 2 cap PO DAILY RF: 0 High Absorption Magnesium 2 tab PO BID RF: 0 <Raúl Bright MD - Last Filed: 12/18/17 19:17> Cosign ED Attending Cosignature Attestation: Exam Narrative: GENERAL APPEARANCE: Patient sitting comfortably, in no distress. HEENT: PERRL, EOMI, conjunctiva pink NECK: Supple I was present in the ER at the time this patient's care. I was available for verbal consultation or to see the patient directly if requested. I agree with the assessment and treatment plan.
--- NOTE | 2017-12-18 17:20 | DI.CT.S_ITS ---
PROCEDURE: CT CERVICAL SPINE WO CON INDICATIONS: glf TECHNIQUE: Noncontrast 3 mm thick sections acquired from the skull base to the T4 level. Sagittal and coronal reformats were then constructed. For radiation dose reduction, the following was used: automated exposure control, adjustment of mA and/or kV according to patient size. COMPARISON: None. FINDINGS: Image quality: Excellent. Bones: No fractures or dislocations. Visualized superior ribs are intact. Degenerative disc disease is moderately severe from C4 through C6 with both likelihood of spinal and foraminal stenosis. Soft tissues: Prevertebral soft tissues are normal in thickness. No paravertebral hematomas. No apical pneumothoraces. IMPRESSION: Ground-level fall with no cervical fracture or traumatic subluxation. Moderately severe degenerative disc disease from C4-C6 with likelihood of significant spinal and foraminal stenosis that could be further assessed by MR scanning electively if clinically indicated. Dictated by: Castillo Cabrera M.D. on 12/18/2017 at 18:18 Approved by: Castillo Cabrera M.D. on 12/18/2017 at 18:20
[2017-12-18 17:30] VITALS: BP 162/71; PULSE 93; RESP 22; O2SAT 96
[2017-12-18 17:34] LABS: Add Manual Diff / Slide Review NO; Basophils Percent Auto 0.3 % (0-2); Eosinophils Percent Auto 1.2 % (2-4); Hematocrit 38.6 % (36-46); Hemoglobin 12.3 g/dL (12.0-16.0); Lymphocytes Percent Auto 19.5 % (25-40); Mean Corpuscular HGB Conc 31.9 % (30-36); Mean Corpuscular Hemoglobin 26.9 PG (26-34); Mean Corpuscular Volume 84.4 fL (80-100); Monocytes Percent Auto 7.2 % (3-14); Neutrophils Absolute Auto 9200 /uL (3000-5900); Neutrophils Percent Auto 71.8 % (50-75); Platelet Count 278 X10^3/uL (150-400); Red Blood Cell Count 4.57 X10^6/uL (4.0-5.2); Red Cell Distribution Width 15.3 % (11.6-14.8); White Blood Cell Count 12.8 X10^3/uL (4.5-11.0)
[2017-12-18 17:42] LABS: INR 1.1 (0.9-1.3); Prothrombin Time 11.9 SECONDS (10.1-12.7)
[2017-12-18 17:44] LABS: PTT Partial Thromboplastin Tim 34 SECONDS (26.4-36.2)
[2017-12-18 17:45] VITALS: BP 155/65; PULSE 95; RESP 27; O2SAT 94
[2017-12-18 17:45] LABS: Alanine Aminotransferase 24 IU/L (9-52); Albumin 4.4 g/dL (3.5-5.0); Albumin Globulin Ratio 1.5 (1.0-2.8); Alkaline Phosphatase 66 U/L (38-126); Aspartate Aminotransferase 22 IU/L (14-36); BUN Creatinine Ratio 18.8 (6-22); Bilirubin Total 0.3 mg/dL (0.2-1.3); Blood Urea Nitrogen 15 mg/dL (7-17); Calcium 8.9 mg/dL (8.4-10.2); Carbon Dioxide 26 mmol/L (22-32); Chloride 101 mmol/L (98-107); Estimated Glomerular Filt Rate > 60.0 mL/min (>60); Globulin 2.9 g/dL (1.7-4.1); Glucose 202 mg/dL (80-110); HEMOLYSIS < 15 (0-50); Potassium 4.4 mmol/L (3.4-5.1); Sodium 142 mmol/L (137-145); Total Protein 7.3 g/dL (6.3-8.2)
--- NOTE | 2017-12-18 17:52 | PC.NURSE ---
c-collar not fitting on patient per NADIYA Braswell. tried multiple times. no neck. provider, Mckenzie yoo towel roll.
--- NOTE | 2017-12-18 18:27 | PC.NURSE ---
garrett HEARN, Kishan placed urinary cath
[2017-12-18] MEDS: MORPHINE 4 MG/ML INJ IV (18:29)
[2017-12-18] MEDS: ONDANSETRON 4 MG/2 ML INJ IV (18:29)
--- NOTE | 2017-12-18 18:31 | PC.NURSE ---
pt complained of b/l knee pain, head pain, right wrist and forearm pain. pt was able to lift her hips up to allow staff to remove her pants. pt didn't complain of any hip pain.
== END 2017-12-18 18:35 | disposition short-term general hospital (02) ==
PROVIDERS: Emergency Provider Nurse Practitioner Family
DX: S01.81XA Laceration without foreign body of other part of head, initial encounter (principal); I61.9 Nontraumatic intracerebral hemorrhage, unspecified; W01.0XXA Fall on same level from slipping, tripping and stumbling without subsequent striking against object, initial encounter
CPT/HCPCS: 36591; 70450; 70486; 72125; 73100; 73562; 80053; 85025; 85610; 85730; 86850; 86900; 86901; 90471; 93005; 96374; 96375; 99285; 99291; 90715; J2270; J2405

== ENCOUNTER → 2018-01-08 09:22 | Outpatient (CLI) | payer OTHER, SELFPAY ==
[2018-01-08 10:46] LABS: HEMOLYSIS < 15 (0-50); Potassium 4.4 mmol/L (3.4-5.1)
== END ==
PROVIDERS: Visit Provider Internal Medicine
DX: E87.5 Hyperkalemia (principal)
CPT/HCPCS: 36415; 84132

== ENCOUNTER → 2018-02-03 12:59 | Outpatient (CLI) | payer OTHER, SELFPAY ==
--- NOTE | 2018-02-03 | DI.CT.S_ITS ---
PROCEDURE: CT HEAD/BRAIN WO CON INDICATIONS: DIZZINESS TECHNIQUE: Noncontrast 4.5 mm thick angled axial sections acquired from the foramen magnum to the vertex, with coronal and sagittal reformats. For radiation dose reduction, the following was used: automated exposure control, adjustment of mA and/or kV according to patient size. COMPARISON: [facility], CT, CT HEAD/BRAIN WO CON, 12/18/2017, 16:21. FINDINGS: Image quality: Excellent. CSF spaces: Basal cisterns are patent. No extra-axial fluid collections. The ventricles are symmetric in size and shape. Brain: No intracranial bleeds or masses. Interval resolution of the previously seen right frontal parenchymal hematoma. There is cerebral volume loss for age, with resultant ventricular and sulcal prominence. There are periventricular and deep white matter chronic small vessel ischemic changes. There is intracranial internal carotid artery atherosclerosis. Skull and face: Calvarium and visualized facial bones appear intact, without suspicious lesions. Previous right pterional soft tissue swelling has improved since 12/18/17 Sinuses: Visualized sinuses and mastoids are clear. IMPRESSION: No acute intracranial process. Interval improvement in right frontal posttraumatic changes as above Dictated by: Andres Oneal M.D. on 02/03/2018 at 15:27 Approved by: Andres Oneal M.D. on 02/03/2018 at 15:29
== END ==
PROVIDERS: PCP Internal Medicine; Visit Provider Internal Medicine
DX: R42 Dizziness and giddiness (principal); I65.29 Occlusion and stenosis of unspecified carotid artery
CPT/HCPCS: 70450